=== PATIENT | female | born 1980 | race Asian ===

== ENCOUNTER 2019-01-27 06:53 | Emergency (ER) | payer SELFPAY ==
[~2019-01-27] VITALS: Ht 157.5 cm; Wt 90.9 kg
[2019-01-27 08:14] VITALS: BP 133/97
[2019-01-28 07:25] LABS: HSV 1 TYPE SPECIFIC IGG <0.91 index (0.00-0.90)
== END 2019-01-27 08:28 | disposition home or self-care (01) ==
LOC: EMS 06:57
DX: N89.8 Other specified noninflammatory disorders of vagina (principal)
CPT/HCPCS: 86694; 86695; 86696

== ENCOUNTER 2020-09-24 12:29 | Emergency (ER) | payer OTHER ==
[~2020-09-24] VITALS: Ht 157.5 cm; Wt 70.5 kg
[2020-09-24 12:30] VITALS: BP 163/120
== END 2020-09-24 15:07 | disposition home or self-care (01) ==
LOC: EMS 12:38
DX: H05.011 Cellulitis of right orbit (principal); H57.89 Other specified disorders of eye and adnexa